=== PATIENT | female | born 1990 | race Caucasian/White ===

== ENCOUNTER 2017-09-24 21:32 | Emergency (ER) | payer SELFPAY ==
[~2017-09-24] VITALS: Ht 154.9 cm; Wt 68.3 kg
[2017-09-24 21:49] VITALS: TEMP 37; Ht 154.9 cm; Wt 68.3 kg
[2017-09-24] MEDS ORDERED: SODIUM CHLORIDE 0.9% 1000ML 1,000 ML IV STA (22:53)
[2017-09-24] MEDS ORDERED: ACETAMINOPHEN 500 MG TAB PO STA (22:53)
[2017-09-24] MEDS ORDERED: ONDANSETRON INJ 2 MG/ML 2 ML VIAL IV STA (22:53)
[2017-09-24 23:11] LABS: BASO % 0.1 %; BASO ABS # 0.01 K/uL (0-0.2); EOS % 0.6 %; EOS ABS # 0.08 K/uL (0-0.5); HEMATOCRIT 36.8 % (37-47); IG# 0.06 K/uL (0.00-0.02); LYMPH % 20.4 %; LYMPH ABS # 2.52 K/uL (1.2-3.4); MEAN CELL VOLUME 89.3 fL (80-100); MEAN CORPUSCULAR HEMOGLOBIN 31.6 pg (25-34); MEAN CORPUSCULAR HGB CONC 35.3 g/dl (32-36); MEAN PLATELET VOLUME 9.6 fL (7.4-10.4); MONO % 3.5 %; MONO ABS # 0.43 K/uL (0.11-0.59); NEUT % 74.9 %; NEUT ABS # 9.24 K/uL (1.4-6.5); PLATELET COUNT 236 K/uL (130-400); RED CELL DISTRIBUTION WIDTH CV 13.3 % (11.5-14.5); RED CELL DISTRIBUTION WIDTH SD 43.5 fL (36.4-46.3); WHITE BLOOD COUNT 12.34 K/uL (4.8-10.8)
[2017-09-24 23:28] LABS: ALBUMIN 3.2 gm/dl (3.4-5.0); ALT/SGPT 16 U/L (12-78); BLOOD UREA NITROGEN 13 mg/dl (7-18); CALCIUM 9.2 mg/dl (8.5-10.1); CARBON DIOXIDE 22 mmol/L (21-32); CREATININE 0.44 mg/dl (0.60-1.20); GLUCOSE 78 mg/dl (70-99); POTASSIUM 3.7 mmol/L (3.5-5.1); SODIUM 133 mmol/L (136-145)
[2017-09-24 23:29] LABS: INR 0.9 (0.9-1.1); PTT PATIENT 27.5 SECONDS (21.0-31.0)
[2017-09-24 23:30] LABS: ALKALINE PHOSPHATASE 49 U/L (45-117); AST/SGOT 9 U/L (15-37)
[2017-09-24] MEDS ORDERED: CEFTRIAXONE SOD INJ 1 GM ADDVIAL IV STA (23:55)
[2017-09-24] MEDS ORDERED: PEDICHW50 PO (23:59)
[2017-09-25 01:00] VITALS: BP 103/57; PULSE 79; O2SAT 97
[2017-09-25 01:01] VITALS: O2SAT 97
[2017-09-25] MEDS ORDERED: ONDA4TAB10 SL (01:11)
[2017-09-25] MEDS ORDERED: CEPH500C PO (01:11)
--- NOTE | 2017-09-25 01:43 | EMERGENCY ROOM VISIT NOTE ---
History Report prepared by Sandy: Allyson Le Under the Supervision of: Dr. Hebert Segovia M.D. First contact with patient: 22:39 Chief Complaint: VOMITING Stated Complaint: SEVERE CRAMPING W/VOMITING, MIGRAINE, 15WKS PREG Nursing Triage Summary: patient is 15 weeks and has been experiencing cramping. OBGYN not concerned because no bleeding. patient now is vomiting and cramping with migraines History of Present Illness The patient is a 27 year old female who presents to the Emergency Room with complaints of persistent abdominal cramping starting 2 weeks ago. The patient is currently 15 weeks . This is her 4th . She has not had any miscarriages. She is not having any bleeding. She reports daily migraines, back pain, and projectile vomiting. She saw some blood in her vomit. She is seeing black spots in her vision with the migraines. She has a history of migraines, but has never had them daily. She currently does not have a migraine, but does feel a pressure in her head. She denies any recent trauma. Source of History: patient Onset: 2 weeks ago Position: abdomen Quality: cramping Timing: other (persistent) Associated Symptoms: + headache, + vomiting, + back pain Review of Systems See HPI for pertinent positives & negatives. A total of 10 systems reviewed and were otherwise negative. Past Medical & Surgical Medical Problems: (1) Migraine Family History No pertinent family history stated. Social History Smoking Status: Current Every Day Smoker Housing Status: lives with family Current/Historical Medications Scheduled Cephalexin Monohydrate (Keflex), 1 CAP PO QID Ondasetron Odt (Zofran Odt), 4 MG SL Q6H Pediatric Multiple Vitamin W/ (Flintstones Chewable), 2 TAB PO QAM Allergies Coded Allergies: No Known Allergies (Unverified , 09/25/17) Physical Exam Vital Signs Date Time Temp Pulse Resp B/P (MAP) Pulse Ox O2 Delivery O2 Flow Rate FiO2 09/25/17 01:01 97 Room Air 09/25/17 01:00 79 16 103/57 97 Room Air 09/24/17 23:36 89 16 115/69 100 Room Air 09/24/17 21:49 37.0 94 20 127/59 97 Room Air Physical Exam GENERAL: Patient is a healthy-appearing well-nourished female HEAD: Normocephalic atraumatic EYES: Ocular movements intact pupils equal and react to light OROPHARYNX mucous membranes are moist no exudates present no erythema or edema present NECK: Supple no nuchal rigidity CHEST: Good equal expansion LUNGS: Clear and equal to auscultation CARDIAC: Normal S1 and S2 ABDOMEN: Soft nontender no guarding BACK: No CVA tenderness EXTREMITIES: No pain upon palpation normal muscle strength in all groups no clubbing cyanosis or edema NEURO: Patient is following commands and answering questions appropriately. Alert and oriented x3 Cranial Nerves 2-12 grossly intact Medical Decision & Procedures ER Provider Diagnostic Interpretation: Radiology results as stated below per my review and [facility] radiologist interpretation: US OB Limited: Single live IUP measuring consistent with 15 weeks 0 days. heart rate 142 beats per minute. Variable positioning noted. Placenta is posterior without previa. Cervix not visualized. Amniotic fluid volume subjectively within normal limits. Laboratory Results 09/24/17 22:58 Red Blood Count 4.12, Mean Corpuscular Volume 89.3, Mean Corpuscular Hemoglobin 31.6, Mean Corpuscular Hemoglobin Concent 35.3, Mean Platelet Volume 9.6, Neutrophils (%) (Auto) 74.9, Lymphocytes (%) (Auto) 20.4, Monocytes (%) (Auto) 3.5, Eosinophils (%) (Auto) 0.6, Basophils (%) (Auto) 0.1, Neutrophils # (Auto) 9.24, Lymphocytes # (Auto) 2.52, Monocytes # (Auto) 0.43, Eosinophils # (Auto) 0.08, Basophils # (Auto) 0.01 09/24/17 22:58 Test 09/24/17 22:55 09/24/17 22:58 Urine Color YELLOW Urine Appearance CLEAR (CLEAR) Urine pH 5.5 (4.5-7.5) Urine Specific [place] 1.026 (1.000-1.030) Urine Protein NEG (NEG) Urine Glucose (UA) NEG (NEG) Urine Ketones 2+ (NEG) Urine Occult Blood 1+ (NEG) Urine Nitrite POS (NEG) Urine Bilirubin NEG (NEG) Urine Urobilinogen NEG (NEG) Urine Leukocyte Esterase TRACE (NEG) Urine WBC (Auto) 5-10 /hpf (0-5) Urine RBC (Auto) 0-4 /hpf (0-4) Urine Hyaline Casts (Auto) 5-10 /lpf (0-5) Urine Epithelial Cells (Auto) >30 /lpf (0-5) Urine Bacteria (Auto) 4+ (NEG) Urine Test POS (NEG) White Blood Count 12.34 K/uL (4.8-10.8) Red Blood Count 4.12 M/uL (4.2-5.4) Hemoglobin 13.0 g/dL (12.0-16.0) Hematocrit 36.8 % (37-47) Mean Corpuscular Volume 89.3 fL (80-100) Mean Corpuscular Hemoglobin 31.6 pg (25-34) Mean Corpuscular Hemoglobin Concent 35.3 g/dl (32-36) Platelet Count 236 K/uL (130-400) Mean Platelet Volume 9.6 fL (7.4-10.4) Neutrophils (%) (Auto) 74.9 % Lymphocytes (%) (Auto) 20.4 % Monocytes (%) (Auto) 3.5 % Eosinophils (%) (Auto) 0.6 % Basophils (%) (Auto) 0.1 % Neutrophils # (Auto) 9.24 K/uL (1.4-6.5) Lymphocytes # (Auto) 2.52 K/uL (1.2-3.4) Monocytes # (Auto) 0.43 K/uL (0.11-0.59) Eosinophils # (Auto) 0.08 K/uL (0-0.5) Basophils # (Auto) 0.01 K/uL (0-0.2) RDW Standard Deviation 43.5 fL (36.4-46.3) RDW Coefficient of Variation 13.3 % (11.5-14.5) Immature Granulocyte % (Auto) 0.5 % Immature Granulocyte # (Auto) 0.06 K/uL (0.00-0.02) Prothrombin Time 9.5 SECONDS (9.0-12.0) Prothromb Time International Ratio 0.9 (0.9-1.1) Activated Partial Thromboplast Time 27.5 SECONDS (21.0-31.0) Partial Thromboplastin Ratio 1.1 Anion Gap 8.0 mmol/L (3-11) Est Creatinine Clear Calc Drug Dose 166.7 ml/min Estimated GFR () > 150.0 Estimated GFR (Non- 136.4 BUN/Creatinine Ratio 28.3 (10-20) Calcium Level 9.2 mg/dl (8.5-10.1) Total Bilirubin 0.3 mg/dl (0.2-1) Aspartate Amino Transf (AST/SGOT) 9 U/L (15-37) Alanine Aminotransferase (ALT/SGPT) 16 U/L (12-78) Alkaline Phosphatase 49 U/L (45-117) Total Protein 7.0 gm/dl (6.4-8.2) Albumin 3.2 gm/dl (3.4-5.0) Globulin 3.8 gm/dl (2.5-4.0) Albumin/Globulin Ratio 0.8 (0.9-2) Human Chorionic Gonadotropin, Quant 87813 mIU/mL Labs reviewed by ED physician. Medications Administered Medications (Trade) Dose Ordered Sig/Marily Route Start Time Stop Time Status Last Admin Dose Admin Sodium Chloride 1,000 ml @ 999 mls/hr Q1H1M STAT IV 09/24/17 22:53 09/24/17 23:53 DC 09/24/17 23:25 999 MLS/HR Ondansetron HCl (Zofran Inj) 4 mg NOW STAT IV 09/24/17 22:53 09/24/17 22:55 DC 09/24/17 23:25 4 MG Ceftriaxone Sodium (Rocephin Inj) 1 gm NOW STAT IV 09/24/17 23:55 09/24/17 23:57 DC 09/25/17 00:56 1 GM ED Course 2245: Past medical records reviewed. The patient was evaluated in room C3. A complete history and physical examination was performed. 2253: Zofran Inj 4 mg IV, NSS 1000 ml @ 999 mls/hr IV. 2355: Rocephin Inj 1 gm IV. 0107: Upon reexamination the patient is resting comfortably. I discussed results and treatment plan with the patient. She verbalizes agreement and understanding. The patient is ready for discharge. Medical Decision Differential diagnosis: Etiologies such as appendicitis, diverticulitis, PUD, biliary pathology, UTI, pancreatitis, obstruction, mesenteric ischemia, aortic pathology, infections, inflammatory bowel disease, renal colic, as well as others were entertained. This is a 27-year-old female who presents emergency department complaining of abdominal cramping along with vomiting. The patient is . An IV was established, patient given normal saline bolus. The patient was started on Rocephin for what appears to be urinary tract infection. She was also given Zofran as well as Tylenol. Repeat examination revealed improvement the patient' s symptoms. I do feel the patient as well as to be discharged home pending urine culture results. Patient was in agreement with the treatment plan. Medication Reconcilliation Current Medication List: was personally reviewed by me Blood Pressure Screening Patient's blood pressure: Normal blood pressure Blood pressure disposition: Did not require urgent referral Impression Primary Impression: Vomiting Additional Impressions: UTI (urinary tract infection) Scribe Attestation The scribe's documentation has been prepared under my direction and personally reviewed by me in its entirety. I confirm that the note above accurately reflects all work, treatment, procedures, and medical decision making performed by me. Departure Information Dispostion Home / Self-Care Prescriptions Ondasetron Odt (ZOFRAN ODT) 4 Mg Tab 4 MG SL Q6H for Nausea, #6 TAB Prov: Hebert Segovia MD 09/25/17 Cephalexin Monohydrate (Keflex) 500 Mg Cap 1 CAP PO QID for 10 Days, #40 CAP Prov: Hebert Segovia MD 09/25/17 Referrals No Doctor, Assigned (PCP) Forms HOME CARE DOCUMENTATION FORM, IMPORTANT VISIT INFORMATION Patient Instructions ED UTI Cystitis Female, My [facility], Preg 2nd Trimester, Preg 2nd Trimester Coping, Preg Comfort Tips Additional Instructions Follow up with Dr Hodgson's office Increase fluids next 48 hours You have been examined and treated today on an emergency basis only. This is not a substitute for, or an effort to provide, complete comprehensive medical care. It is impossible to recognize and treat all injuries or illnesses in a single emergency department visit. It is therefore important that you follow up closely with your PCP. Call as soon as possible for an appointment. Thank you for your time and consideration. I look forward to speaking with you again soon. Please don't hesitate to call us if you have any questions. Problem Qualifiers Primary Impression: Vomiting Vomiting type: unspecified Vomiting Intractability: unspecified Nausea presence: unspecified Qualified Codes: R11.10 - Vomiting, unspecified Additional Impressions: Weeks of gestation: 15 weeks Qualified Codes: Z3A.15 - 15 weeks gestation of UTI (urinary tract infection) Urinary tract infection type: acute cystitis Hematuria presence: without hematuria Qualified Codes: N30.00 - Acute cystitis without hematuria
--- NOTE | 2017-09-25 08:06 | DIAGNOSTIC IMAGING REPORT ---
ULTRASOUND LIMITED CLINICAL HISTORY: . Cramping. COMPARISON STUDY: No priors. FINDINGS: Real-time, grayscale, and color Doppler sonography of the gravid uterus is performed. There is a single live uterine gestation with an estimated heart rate of 143 bpm. The placenta is posterior and normal as imaged. Position was variable throughout the examination. The cervix was not well visualized. The femoral length measures 1.42 cm, corresponding to estimated age of 14 weeks one day. The amniotic fluid volume is grossly normal. IMPRESSION: There is a single live uterine gestation with an estimated age of 14 weeks one day by femoral length measurement. Note that this does not constitute a dedicated anatomic scan. Dictated: 09/25/2017 7:39 AM Transcribed: 09/25/2017 8:06 AM [facility] Electronically signed by: Wally Hatch M.D. 09/25/2017 8:12 AM Dictated Date/Time: 09/25/2017 7:39 AM
== END 2017-09-25 01:29 | disposition home or self-care (01) ==
LOC: C.EDB 21:35 → C.EDC 09-25 01:29
DX: R11.10 Vomiting, unspecified (principal); Z3A.15 15 weeks gestation of pregnancy; N30.00 Acute cystitis without hematuria; F17.200 Nicotine dependence, unspecified, uncomplicated